=== PATIENT | male | born 1955 | race Caucasian/White ===

== ENCOUNTER 2020-02-12 10:13 | Emergency (ER) | payer OTHER, SELFPAY ==
[2020-02-12 10:15] VITALS: BP 158/104; PULSE 77; RESP 16; TEMP 36.2; O2SAT 99; BMI 34.2
[2020-02-12] MEDS: Diphth,Pertuss(Acell),Tet Vac 0.5 ML Vial IM (11:26)
--- NOTE | 2020-02-12 11:34 | ED.DCSUM_ITS ---
History of Present Illness Chief Complaint: Laceration Informant: Patient Narrative: Patient is a 65-year-old previously healthy male who presents to the emergency department for laceration to his right middle finger. He states that he was at work whenever he tripped and fell forward. Bleeding has been controlled prior to arrival in the ED. He denies any other injury during the fall. He is not sure when the last time he had a tetanus shot was. He is not on any anticoagulation medications. Patient denies any issues with sensation or difficulty moving the finger. Past Medical History - Allergies and Home Meds Allergies/Adverse Reactions: Allergies No Known Allergies Allergy (Verified 02/12/20 10:14) Primary Care Physician: Care Physician,No Primary [Primary Care Provider] - 7 Days for suture removal Prior records reviewed: Yes Past Medical History: None Smoking Status: Current some day smoker Review of Systems All systems negative except as indicated General: Denies: Chills, Fever Cardiovascular: Denies: Chest pain Respiratory: Denies: Dyspnea, Cough Gastrointestinal: Denies: Abdominal pain, Nausea, Vomiting Musculoskeletal: Denies: Neck pain, Back pain, Swelling Skin: Reports: Wounds Neurological: Denies: Headache Physical Exam Vital Signs/Narrative: Vital Signs Temp Pulse Resp BP Pulse Ox 02/12/20 10:15 97.2 F L 77 16 158/104 H 99 Inital Vital Signs reviewed: Yes General: Well nourished, Well developed, No Acute Distress Head: Normocephalic, Atraumatic Eyes: Perrl, EOMI ENT: Moist mucous membranes, No rhinorrhea Neck: Supple, Nontender Cardiovascular: Regular rate, Regular rhythm, No murmurs Respiratory: No distress, CTA bilaterally Abdomen: Soft, Nondistended Back: Nontender, Normal Inspection Extremities: Nontender, No edema Skin: Normal color, No rash, Trauma - The pad of the middle right finger is almost completely avulsed. Laceration is 5.5cm long in a c-shape. No exposed bone. Nailbed is not involved. He has sensation on the lateral and medial aspect of the finger. Able to have full range of motion otherwise. Neurological: Alert, Oriented x3, Normal Strength, Normal Sensation Psychological: Normal affect, Normal Mood Diagnostic/Tx/Re-eval - Medical Decision Making Patient presents to the emergency department for laceration to the middle finger. He is right-handed at baseline. This did require suture repair. He is to monitor for evidence of infection. Patient understands that he will have a significant scar and potential this does not completely heal as it is a large avulsion. He is to follow-up with his PCP. Sutures were need to be removed in 7 to 10 days. He is discharged home in stable condition. Procedures - Lacerations No standard instances Length: 2.17 in Depth: Skin Shape: Flap Prep: Sterile Conditions, Naina-Ko Laceration repair: Lidocaine - Digital block with 4 cc of 2% lidocaine without epi. Irrigated (ml): 500 Number of Sutures/[place]: 8 Suture Information: Ethilon, Simple, 5-0 Comment: Dressed in antibiotic ointment and nonadherent bandage. It was then beulah taped to index finger. ED Disposition - Plan for ED Patient: Disposition: Home or Assisted Living Diagnosis: Finger laceration Instructions: ED Laceration All Closures Referrals: Care Physician,No Primary [Primary Care Provider] - 7 Days for suture removal
[2020-02-12 12:28] VITALS: BP 148/97; PULSE 74; RESP 18; O2SAT 96
== END 2020-02-12 12:33 | disposition home or self-care (01) ==
PROVIDERS: Emergency Provider Emergency Medicine
DX: S61.212A Laceration without foreign body of right middle finger without damage to nail, initial encounter (principal); W01.0XXA Fall on same level from slipping, tripping and stumbling without subsequent striking against object, initial encounter; Y93.9 Activity, unspecified; Y92.9 Unspecified place or not applicable; Y99.0 Civilian activity done for income or pay; F17.200 Nicotine dependence, unspecified, uncomplicated
CPT/HCPCS: 12002; 90471; 90715; 99284